=== PATIENT | female | born 1980 | race Caucasian/White ===

== ENCOUNTER 2025-04-28 10:44 | Emergency (ER) | payer OTHER, SELFPAY ==
--- OUTSIDE RECORDS SUMMARY | 2024-07-05 05:40 | XMS_ITS ---
Author Organization [employer] [facility] Address [address] [place] [address] Care Team Providers Care Merchandise Collector Name Role Phone Smitha SHAH, Jaciel Primary Care Provider Rianna Amaral Unavailable [phone] REASON FOR VISIT ULTRA - CK IUD PLACEMENT FIBROIDS Encounters Encounter Location Date Provider Diagnosis [facility] [address] [place] [address] 07/05/2024 Rianna Do Plan Of Treatment Next Appt Details Provider Name:Rianna mosley, 05/16/2025 02:00:00 PM, [address], [address], [place], [address], Progress Notes * JOSSELINE LOPEZDOB:[birth year] (44 yo F)Acc No.[id number]:07/05/2024 PROGRESS NOTES Patient: Yaritza PRASAD JOSSELINE Appointment Provider: Thom Do M.D. :1980 A ge:43 Y S ex:Female Date:07/05/2024 Address:[address] [place], [place] [id number] Pcp:Jaicel Bone MD Subjective: * Chief Complaints: * 1 . ULTRA - CK IUD PLACEMENT FIBROIDS. * Medical History: Objective: * Vitals: Assessment: Plan: * Treatment: * Images: Billing Information: * Visit Code: * Procedure Codes: * Electronic signature of Chandu Do MD on 04/28/2025 at 02:49 PM EST Sign off status: Pending * Appointment Provider: Thom Do M.D. Date: 0 07/05/2024 Generated for Jeane reynolds/Evelia/Orlin on: 1 06/29/2024 02:49 PM EST
--- OUTSIDE RECORDS SUMMARY | 2024-07-16 05:40 | XMS_ITS ---
Author Organization [facility] Address [address] [place] [address] Care Team Providers Care Retort Fireman Name Role Phone Smitha SHAH, Jaciel Primary Care Provider Rianna Amaral Unavailable [phone] REASON FOR VISIT LEEP Encounters Encounter Location Date Provider Diagnosis [facility] [address] [place] [address] 07/16/2024 Rianna Do Plan Of Treatment Next Appt Details Provider Name:Rianna mosley, 05/16/2025 02:00:00 PM, [address], [address], [place], [address], Progress Notes * JOSSELINE LOPEZDOB:[birth year] (44 yo F)Acc No.[id number]:07/16/2024 Progress Note Patient: Yaritza PRASAD JOSSELINE Appointment Provider: Thom Do M.D. :1980 A ge:43 Y S ex:Female Date:07/16/2024 Address:[address] [place], [place] [id number] Pcp:Jaciel Bone MD Subjective: * Chief Complaints: * 1 . LEEP. * Medical History: Objective: * Vitals: Assessment: Plan: * Treatment: * Images: Billing Information: * Visit Code: * Procedure Codes: * Electronic signature of Chandu Do MD on 04/28/2025 at 02:49 PM EST Sign off status: Pending * Appointment Provider: Thom Do M.D. Date: 0 07/16/2024 Generated for Jeane reynolds/Evelia/Orlin on: 1 06/29/2024 02:49 PM EST
--- OUTSIDE RECORDS SUMMARY | 2024-07-19 08:40 | XMS_ITS ---
Author Organization [facility] [employer] [facility] Address [address] [place] [address] Care Team Providers Care Hvac R Instructor Name Role Phone Smitha SHAH, Jaciel Primary Care Provider Rianna Amaral Unavailable [phone] REASON FOR VISIT LEEP FOLLOW UP/MIRENA INSERTION Encounters Encounter Location Date Provider Diagnosis [facility] [employer] [address] [place] [address] 07/19/2024 Rianna Do Plan Of Treatment Next Appt Details Provider Name:Rianna mosley, 05/16/2025 02:00:00 PM, [address], [address], [place], [address], Progress Notes * JOSSELINE LOPEZDOB:[birth year] (44 yo F)Acc No.[id number]:07/19/2024 PROGRESS NOTES Patient: Yaritza PRASAD JOSSELINE Appointment Provider: Thom Do M.D. :1980 A ge:43 Y S ex:Female Date:07/19/2024 Address:[address] [place], [place] [phone] Pcp:Jaciel Bone MD Subjective: * Chief Complaints: * 1 . LEEP FOLLOW UP/MIRENA INSERTION. * Medical History: Objective: * Vitals: Assessment: Plan: * Treatment: * Images: Billing Information: * Visit Code: * Procedure Codes: * Electronic signature of Chandu Do MD on 04/28/2025 at 02:49 PM EST Sign off status: Pending * Appointment Provider: Thom Do M.D. Date: 0 07/19/2024 Generated for Jeane reynolds/Evelia/Orlin on: 1 06/29/2024 02:49 PM EST
--- OUTSIDE RECORDS SUMMARY | 2024-07-19 09:00 | XMS_ITS ---
Author Organization [facility] Address [address] [place] [address] Care Team Providers Care Logistics Associate Name Role Phone Smitha SHAH, Jaciel Primary Care Provider Rianna Amaral Unavailable [phone] REASON FOR VISIT IUD WITH US GUIDANCE Encounters Encounter Location Date Provider Diagnosis [facility] [address] [place] [address] 07/19/2024 Rianna Do Plan Of Treatment Next Appt Details Provider Name:Rianna mosley, 05/16/2025 02:00:00 PM, [address] [address] [facility], [address], [place], [address], Progress Notes * JOSSELINE LOPEZDOB:[birth year] (44 yo F)Acc No.[id number]:07/19/2024 PROGRESS NOTES Patient: MEKHI MCMAHONLI Appointment Provider: Thom Do M.D. :1980 A ge:43 Y S ex:Female Date:07/19/2024 Address:[address] [place], [place] [phone] Pcp:Jaciel Bone MD Subjective: * Chief Complaints: * 1 . IUD WITH US GUIDANCE. * Medical History: Objective: * Vitals: Assessment: Plan: * Treatment: * Images: Billing Information: * Visit Code: * Procedure Codes: * Electronic signature of Chandu Do MD on 04/28/2025 at 02:49 PM EST Sign off status: Pending * Appointment Provider: Thom Do M.D. Date: 0 07/19/2024 Generated for Jeane reynolds/Evelia/Orlin on: 1 06/29/2024 02:49 PM EST
--- OUTSIDE RECORDS SUMMARY | 2024-08-09 03:30 | XMS_ITS ---
Author Organization [employer] Address [address] [place] [address] Care Team Providers Care Medicinal Plant Picker Name Role Phone Smitha SHAH, Jaciel Primary Care Provider Rianna Amaral Unavailable [phone] REASON FOR VISIT ULTRA- CK IUD PLACEMENT Encounters Encounter Location Date Provider Diagnosis [facility] [employer] [address] [place] [address] 08/09/2024 Rianna Do Plan Of Treatment Next Appt Details Provider Name:Rianna mosley, 05/16/2025 02:00:00 PM, [address], [address], [place], [address], Progress Notes * JOSSELINE LOPEZDOB:[birth year] (44 yo F)Acc No.[id number]:08/09/2024 PROGRESS NOTES Patient: Yaritza PRASAD JOSSELINE Appointment Provider: Thom Do M.D. :1980 A ge:43 Y S ex:Female Date:08/09/2024 Address:[address] [place], [place] [phone] Pcp:Jaciel Bone MD Subjective: * Chief Complaints: * 1 . ULTRA- CK IUD PLACEMENT. * Medical History: Objective: * Vitals: Assessment: Plan: * Treatment: * Images: Billing Information: * Visit Code: * Procedure Codes: * Electronic signature of Chandu Do MD on 04/28/2025 at 02:49 PM EST Sign off status: Pending * Appointment Provider: Thom Do M.D. Date: 0 08/09/2024 Generated for Jeane reynolds/Evelia/Orlin on: 1 06/29/2024 02:49 PM EST
--- NOTE | 2025-04-28 | ECG_ITS ---
Test Reason : CP Blood Pressure : */* mmHG Vent. Rate : 107 BPM Atrial Rate : 107 BPM P-R Int : 142 ms QRS Dur : 80 ms QT Int : 340 ms P-R-T Axes : 36 -7 17 degrees QTcB Int : 453 ms Sinus tachycardia Possible Left atrial enlargement Borderline ECG No previous ECGs available Referred By: Generic ED Physician Electronically Signed By: MARCELO MARTÍNEZ MD
--- NOTE | ~2025-04-28 | XR_ITS ---
EXAMINATION: XR CHEST 2 VIEWS HISTORY: CHest pain COMPARISON: There are no prior studies available for comparison. FINDINGS: PA and lateral views of the chest are submitted. The lungs are expanded and clear. There is no pleural effusion, pneumothorax, or pulmonary vascular congestion. The heart is normal in size. There is mild degenerative disc disease of the spine. XR/XR chest 2V IMPRESSION: Clear lungs. Electronically signed by: Mikhail Haro MD 04/28/2025 11:33 AM COREY
[2025-04-28 11:08] VITALS: BP 171/99; PULSE 112; RESP 18; TEMP 36.6; O2SAT 97; BMI 34.5
--- NOTE | 2025-04-28 11:14 | ED.CHESTPAIN ---
HPI - Chest Pain General Chief Complaint: Chest Pain Stated Complaint: Chest Pain, Coughing, Shortness of Breath Time Seen by Provider: 04/28/25 11:23 Source: patient Mode of arrival: ambulatory Limitations: no limitations History of Present Illness ED Provider: BRADY YUN PA-C HPI narrative: 44 year old female presents to the ED today for evaluation of cough x1 month. Reports URI infection 1 month ago - she was seen at for symptoms, prescribed amox, prednisone and tessalon perles with improvement. Reports lingering dry cough since. She states that yesterday she began to have deep chest pain under her left breast, worse with movement/ breathing/ coughing/ palpation of the area. She has not trialed anything at home for the pain. She was seen at today with normal CXR - advised to come to the ED to r/o PE v pericarditis. Reports subjective fever/chills last night which have resolved. 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 Denies sore throat, sputum production, hemoptysis, wheezing, SOB, LE pain/swelling. Denies OCP use, recent travel/long car rides, hormone replacement therapy, tobacco use. No personal cardiac hx. Related Data Previous Rx's ?Medication ?Instructions ?Recorded doxycycline hyclate 100 mg tablet 100 mg PO BID 7 days #14 tabs 04/28/25 guaifenesin 200 mg/5 mL oral liquid 200 mg (5 mL) PO Q4H PRN cough 04/28/25 #118 mL prednisone 20 mg tablet 40 mg (2 x 20 mg) PO DAILY 5 days 04/28/25 #10 tabs Allergies Allergy/AdvReac Type Severity Reaction Status Date / Time azithromycin Allergy Unknown Verified 04/28/25 11:10 Review of Systems Review of Systems: Yes all other systems are reviewed and are negative PMFSH Past Medical History Attestation statement: The following information was validated with the patient. Source: old records reviewed and nursing notes reviewed Social History Social History Advance Directives: No Advance Directives Information Provided: No Do you have a plan to hurt others: No Plan Physical Exam Vital Signs: Vital Signs: Last Vital Signs Temp 97.7 F 04/28/25 14:57 Pulse 73 04/28/25 14:57 Resp 18 04/28/25 14:57 BP 140/90 H 04/28/25 14:57 Pulse Ox 97 04/28/25 14:57 O2 Del Method Room Air 04/28/25 14:57 BMI result Body Mass Index 34.5 hyperrensive, mildly tachycardic, not hypoxic General: Well appearing, in no acute distress. Skin: Warm, dry, intact. No rashes or lesions. Head: Normocephalic, atraumatic. EENT: Hearing is intact b/l. Conjunctiva clear. PERRLA. EOM intact. Moist mucous membranes.? Neck: Supple without LAD Cardiac: Chest wall symmetric. RRR. no JVD. Lungs: Normal respiratory effort without accessory muscle use. CTA bilaterally. No rales, rhonchi, or wheezes.? Abdomen: Soft, non-tender, non-distended. No rebound tenderness or guarding. Positive BS x4. Back: No midline spinous or paraspinal tenderness. No step off deformity. Ext: no calf tenderness b/l. no pitting edema. Neuro: AOx3. Normal speech. Ambulating with steady gait. Course Course Course Narrative: RME: 44-year-old female history of Von Willebrand's disease sent from urgent care to rule out PE. Patient is 1 month of coughing and then for the past few days has had pleurisy with left-sided chest pain which is new. Patient tachycardic. Labs EKG chest x-ray ordered Reevaluation(s) Reevaluation #1: CBC without leukocytosis or left shift. no anemia, h&h stable. chemistry without acute electrolyte abnormality requiring intervention. No ROSAMARIA. mild transaminitis. Urine showing moderate blood, trace leukocyte esterase, 6-10 squamous epithelial cells and 1+ urine bacteria. She is asymptomatic, likely contamination. Will await urine culture for treatment of UTI. negative covid, flu, rsv. cxr without evidence of pneumonia, no pleaural effusion or cardiomegaly. ekg showing sinus tachycardia, rate of 107 bpm, without evidence of acute ischemic changes. troponin undetectable. > patient has sustained 95% on room air during ambulatory O2 trial. No longer tachycardic or hypertensive. Vitals are WNL. > Medicated with Toradol for pain with good effect At this time, I have suspicion for pleurisy v bronchitis v rib sprain/strain. Advised NSAIDs. Will send prednisone, azithromycin and guaifenesin to pharmacy. Patient has remained stable throughout ED visit today. Discussed worrisome signs and symptoms and when to return to the ED. All questions answered at this time. Patient is agreeable with disposition and stable for discharge. Medications Administered Discontinued Medications Generic Name Dose Route Start Last Admin Trade Name Fredoq PRN Reason Stop Dose Admin Ketorolac Tromethamine 30 mg 04/28/25 13:28 04/28/25 13:33 Ketorolac Tromethamine 30 Mg/Ml Vial IM 04/28/25 13:29 30 mg ONCE ONE Administration Medical Decision Making Medical Decision Making [facility] Narrative: 44 year old female presents to the ED today for evaluation of cough x1 month with left sided chest pain that began yesterday. patient is hypertensive and tachycardic, vitals are otherwise reassuring. exax benign. History without high risk features (not substernal, no exertional component, not relieved with rest).? Minimal CAD risk factors (including age). Exam without evidence of volume overload. EKG without signs of active ischemia. HEART score: 0. Given the timing of pain to ED presentation, plan to send single troponin to evaluate for NSTEMI. Differential diagnosis also includes anemia, electrolyte abnormality, costochondritis, msk pain, pneumonia, pleurisy, rib sprain/strain, myocarditis, pericarditis, acute PE PERC 1 - tachycardia) Presentation not consistent pneumothorax, thoracic aortic dissection, cardiac effusion or tamponade. Plan: labs, troponin, EKG, CXR, viral swabs, pain control, reassessment Differential Diagnosis Differential Diagnoses: The differential diagnosis associated with the presentation includes as above Admission/Observation Not indicated Lab Data [facility] Lab Attestation statement: I reviewed the patient's lab results. as above 04/28/25 11:42 04/28/25 11:42 Labs: Lab Results 04/28/25 04/28/25 Range/Units 10:58 11:42 WBC 5.1 (4.8-10.8) X10*3/uL RBC 4.34 (4.20-5.50) X10*6/uL Hgb 12.4 (12.0-16.0) g/dl Hct 37.3 (37.0-47.0) % MCV 85.9 (80.0-98.0) fL MCH 28.6 (27.0-33.0) pg MCHC 33.2 (31.0-35.0) g/dl RDW 12.8 (11.0-16.0) % Plt Count 192 (160-400) X10*3/uL MPV 9.7 (9.4-12.3) fL Immature Gran % (Auto) 0.2 (0.0-0.4) % Neut % (Auto) 68.6 (45-73) % Lymph % (Auto) 19.7 L (20-40) % Bandera % (Auto) 9.7 (2-11) % Eos % (Auto) 1.0 (0-4) % Baso % (Auto) 0.8 (0-2) % Lymph # (Auto) 1.0 L (1.2-4.9) X10*3/uL Bandera # (Auto) 0.5 (0.1-1.2) X10*3/uL Eos # (Auto) 0.1 (0.0-0.4) X10*3/uL Baso # (Auto) 0.0 (0.0-0.2) X10*3/uL Abs Immat Gran (auto) 0.01 (0.00-0.03) X10*3/uL Absolute Neuts (auto) 3.5 (2.0-8.3) x10*3/uL Absolute Nucleated RBC 0.000 (0.0-0.012) X10*3/uL Nucleated RBC % (auto) 0.0 (0.0-0.2) /100WBC PT 12.2 (11.2-13.5) SEC INR 1.0 (0.9-1.1) APTT 28.6 (26.7-34.1) SEC D-Dimer High Sensitivty 219 NG/ML Sodium 139 (135-145) mmol/L Potassium 3.5 (3.3-5.1) mmol/L Chloride 108 (96-108) mmol/L Carbon Dioxide 24 (22-29) mmol/L Anion Gap 11 L (12-20) BUN 15 (9-16) mg/dL Creatinine 0.67 (0.5-1.4) mg/dL Estim Creat Clear Calc 125.8 Estimated GFR > 60 Random Glucose 98 (60-115) mg/dL Calcium 8.7 (8.4-10.2) mg/dL Total Bilirubin 0.3 (0.0-1.0) mg/dL AST 45 H (5-31) U/L ALT 54 H (0-31) U/L Alkaline Phosphatase 126 H (39-117) U/L Troponin I High Sens < 2.7 (<3.5-17.0) ng/L NT-Pro-B Natriuret Pep 45.7 (<300) pg/mL Total Protein 6.8 (6.5-8.0) g/dL Albumin 4.6 (3.5-5.0) g/dL Urine Color Yellow Urine Appearance Cloudy Urine pH 5.5 (5.0-9.0) Ur Specific Leonore 1.010 (1.005-1.025) Urine Protein Negative (Neg-Trace) mg/dL Urine Glucose (UA) Negative (Negative) mg/dL Urine Ketones Negative (Negative) mg/dL Urine Blood Moderate (2+) H (Negative) Urine Nitrite Negative (Negative) Ur Leukocyte Esterase Trace H (Negative) Urine RBC 0-2 (0-2) /HPF Urine WBC 0-5 (0-5) /HPF Ur Squamous Epith Cells 6-10 (0-2) /HPF Urine Bacteria 1+ (None Seen) Hyaline Casts 0-2 (0-2) /LPF Influenza Type A (PCR) NEGATIVE (Negative) Influenza Type B (PCR) NEGATIVE (Negative) RSV RNA Qual (PCR) NEGATIVE (Negative) SARS-CoV-2 RNA (RT-PCR) NEGATIVE (Negative) Independent Interpretation I performed an independent interpretation of an: EKG and Plain X-Ray Interpretation: EKG showing sinus tachycardia, no acute ischemic changes or ST elevations Chest x-ray without infiltrate or consolidation Radiology Impression Discussion of test interpretation with radiology: I have reviewed the radiologist's reading. Radiologist Impression: Procedure(s): XR chest 2V Accession Number(s): [id number] cc: Sandoval Solomon; Jaciel Bone MD~ Reason for Exam: CHest pain EXAMINATION: XR CHEST 2 VIEWS HISTORY: CHest pain COMPARISON: There are no prior studies available for comparison. FINDINGS: PA and lateral views of the chest are submitted. The lungs are expanded and clear. There is no pleural effusion, pneumothorax, or pulmonary vascular congestion. The heart is normal in size. There is mild degenerative disc disease of the spine. XR/XR chest 2V IMPRESSION: Clear lungs. Electronically signed by: Mikhail Haro MD 04/28/2025 11:33 AM EST Prescription Management I considered prescription management with: Pain Medication, Antibiotic ( azithromycin) and Other ( prednisone, guaifenesin) Social Determinants Patient?s care significantly limited by Social Determinants of Health including: Other Social Determinant of Health Critical Care Time Critical Care Time Critical Care Time: No Discharge Plan Discharge Clinical Impression: Atypical chest pain, Cough Patient Disposition: Home, Self-Care Instructions: Noncardiac Chest Pain (ED) Additional Instructions: You were evaluated in the ED today for cough and chest pain. Your blood work is reassuring. Your cardiac enzyme is normal. Your EKG shows a slightly elevated heart rate, otherwise normal. Your chest x-ray does not demonstrate pneumonia. You tested negative for COVID, flu, RSV. Your bedside cardiac ultrasound is reassuring. Your d-dimer is within normal limits. As discussed, it is unclear what exactly is causing your symptoms. It may be pleurisy v rib strain v bronchitis. I recommend NSAIDs such as Motrin at home for pain / discomfort. This also acts as an anti-inflammatory. I am sending a 5 day course of prednisone. Take this as prescribed. I am sending doxycycline, an antibiotic, to your pharmacy. Take this as prescribed over the next 5 days. Discontinue Tessalon Perle use. Guaifenesin has been sent to your pharmacy for you to take as needed for cough. Please follow up with your primary care provider. Return with any new or worsening symptoms. In the case of an emergency call 911. Prescriptions: New doxycycline hyclate 100 mg tablet 100 mg PO BID 7 Days Qty: 14 0RF prednisone 20 mg tablet 40 mg PO DAILY 5 Days Qty: 10 0RF guaifenesin 200 mg/5 mL liquid 200 mg PO Q4H PRN (Reason: cough) Qty: 118 0RF Referrals: Jaciel Bone MD [Primary Care Provider, Internal Medicine] Stand Alone Forms: Work/School Release Interventions: ED Discharge Assessment Last Done: 04/28/25 14:57 Discharge Date/Time: 04/28/25 14:57 Print Language: Belarusian
[2025-04-28 11:41] LABS: Resp Syncy Virus RNA Qual PCR NEGATIVE (Negative); SARS COV2 PCR INHOUSE NEGATIVE (Negative)
--- NOTE | 2025-04-28 11:53 | PC.NURSE ---
Labs drawn and sent for analysis, results pending.
[2025-04-28 11:55] LABS: MANUAL DIFF FLAG NO
[2025-04-28 11:58] LABS: Hematocrit 37.3 % (37.0-47.0); Hemoglobin 12.4 g/dl (12.0-16.0); Imm Gran Abs Auto 0.01 X10*3/uL (0.00-0.03); Imm Gran Pct Auto 0.2 % (0.0-0.4); Lymphocytes Absolute Auto 1.0 X10*3/uL (1.2-4.9); Mean Corpuscular HGB Conc 33.2 g/dl (31.0-35.0); Mean Corpuscular Hemoglobin 28.6 pg (27.0-33.0); Mean Corpuscular Volume 85.9 fL (80.0-98.0); NRBC Abs Auto 0.000 X10*3/uL (0.0-0.012); NRBC Pct Auto 0.0 /100WBC (0.0-0.2); Platelet Count 192 X10*3/uL (160-400); Red Blood Count 4.34 X10*6/uL (4.20-5.50); White Blood Count 5.1 X10*3/uL (4.8-10.8)
[2025-04-28 12:00] VITALS: BP 142/94; PULSE 72; RESP 18; O2SAT 98
[2025-04-28 12:00] LABS: Appearance Urine Cloudy; Glucose Urine UA Negative (Negative); PH 5.5 (5.0-9.0); Specific Gravity - Urine 1.010 (1.005-1.025); UMIC TRIGGER UACC YES
[2025-04-28 12:02] LABS: INTERNATIONAL NORM RATIO 1.0 (0.9-1.1); Prothrombin Time 12.2 SEC (11.2-13.5)
[2025-04-28 12:04] LABS: Partial Thromboplastin Time 28.6 SEC (26.7-34.1)
[2025-04-28 12:11] LABS: Alanine Aminotransferase 54 U/L (0-31); Albumin Level 4.6 g/dL (3.5-5.0); Alkaline Phosphatase 126 U/L (39-117); Anion Gap 11 (12-20); Aspartate Amino Transferase 45 U/L (5-31); Blood Urea Nitrogen 15 mg/dL (9-16); Calcium 8.7 mg/dL (8.4-10.2); Carbon Dioxide 24 mmol/L (22-29); Chloride 108 mmol/L (96-108); Creatinine Clr Calc Pharmacy 125.8; Estimated Glomerular Filt Rate > 60; Potassium 3.5 mmol/L (3.3-5.1); Sodium 139 mmol/L (135-145); Total Protein 6.8 g/dL (6.5-8.0)
[2025-04-28 12:12] LABS: D Dimer High Sensitivity 219 NG/ML
[2025-04-28 14:00] VITALS: BP 140/90
[2025-04-28 14:12] LABS: NT Pro B Type Natriuretic Pept 45.7 pg/mL (<300)
[2025-04-28 14:19] LABS: Troponin-I High Sensitivity < 2.7 ng/L (<3.5-17.0)
--- OUTSIDE RECORDS SUMMARY | 2025-04-28 14:49 | XMS_ITS | Patient Health Record ---
Author Organization [facility] Address [address] [place] [address] Care Team Providers Care Computer Consultant Name Role Phone Jaciel Bone MD Primary Care Provider Rianna Amaral Unavailable [phone] Allergies Allergen (clinical drug ingredient) Drug/Non Drug Allergy documented on EMR Reaction Allergy Type Onset Date Status azithromycin Azithromycin Skin Rash Drug Allergy A ctive Results Component Value Reference Range Notes Urinalysis Reviewed date:05/15/2024 03:03:50 PM Interpretation: Performing Lab: Notes/Report: PH 5.0 PROTEIN Trace WBC Small BLOOD Moderate PDF Report Reviewed date:05/24/2024 02:13:04 PM Interpretation: Performing Lab:[facility], [address] [place] [address], Phone - [phone], Director - [facility] Notes/Report: Clinical Information:Vaginal/Cervical, LMP: Non e with IUD Source.............Cervix;Vagina Dates / Results....05/15/19 NIL, Neg HPV Other..............IUD No. of containers..01 ThinPrep Vial [id number] IGP No Culture 30 Plus Reviewed date:05/28/2024 03:41:22 PM Interpretation: Performing Lab:[facility], [address] [place] [address], Phone - [phone], Director - [facility] Notes/Report: Clinical Information:Vaginal/Cervical, LMP: Non e with IUD Source.............Cervix;Vagina Dates / Results....05/15/19 NIL, Neg HPV Other..............IUD No. of containers..01 ThinPrep Vial DIAGNOSIS: EPITHELIAL CELL ABNORMALITY. ATYPICAL SQUAMOUS CELLS OF UNDETERMINED SIGNIFICANCE (ASC-US). PREDOMINANCE OF COCCOBACILLI CONSISTENT WITH SHIFT IN VAGINAL SORIN IS PRESENT. THIS SPECIMEN WAS RESCREENED PART OF OUR DATA ENTRY PROGRAM. Specimen adequacy: Satisfactory for evaluation. Endocervical and/or squamous metaplastic cells (endocervical component) are present. Clinician provided ICD10: Z01.419 Performed by: Dorene negro, Asset Management Coordinator (ASCP) QC reviewed by: Ron elizabeth, Asset Management Coordinator (ASCP) Electronically signed by: Margarette Dumont MD, [facility] . . Pathologist provided ICD10: R87.610, R87.5 Note: The Pap smear is a screening test designed to aid in the detection of premalignant and malignant conditions of the uterine cervix. It is not a diagnostic procedure and should not be used as the sole means of detecting cervical cancer. Both false-positive and false-negative reports do occur. . Test Methodology: This liquid based ThinPrep(R) pap test was screened with the use of an image guided system. HPV Aptima Positive Negative This nucleic acid amplification test detects fourteen high-risk HPV types (16,18,31,33,35,39,45,51,52, 56,58,59,66,68) without differentiation. HPV Genotype Reflex Criteria not met, HPV Genotype not performed. Urine Culture, Routine-[id number] Reviewed date:06/05/2024 08:20:00 AM Interpretation: Performing Lab:[facility], [address] [facility], Phone - [phone], Director - Benjamin Notes/Report: Clinical Information:SRC: Clinical Information:SRC: Urine Culture, Routine Final report Result 1 Mixed urogenital sorin 10,000-25,000 colony forming units per mL Urinalysis, Complete-[id number] Reviewed date:06/05/2024 08:20:16 AM Interpretation: Performing Lab:[facility], [address] [facility], Phone - [phone], Director - Benjamin Notes/Report: Clinical Information:SRC: Clinical Information:SRC: Specific [place] 1.022 1.005-1.030 pH 7.0 5.0-7.5 Urine-Color Yellow Yellow Appearance Clear Clear WBC Esterase Negative Negative Protein Negative Negative/Trace Glucose Negative Negative Ketones Negative Negative Occult Blood Trace Negative Bilirubin Negative Negative Urobilinogen,Semi-Qn 0.2 0.2-1.0 mg/dL Nitrite, Urine Negative Negative Microscopic Examination See below: Micr oscopic was indicated and was performed. WBC 0-5 0 - 5 /hpf RBC 0-2 0 - 2 /hpf Epithelial Cells (non renal) >10 0 - 10 /hpf Casts None seen None seen /lpf Bacteria Few None seen/Few Test, Urine Reviewed date:06/27/2024 09:51:56 AM Interpretation: Performing Lab: Notes/Report: Test, Urine Negative SURGICAL PATHOLOGY Reviewed date:07/06/2024 05:21:28 AM Interpretation: Performing Lab:Testing performed or reported by [facility], a Service of [facility], [address] [place] [address] Spencer Buitrago MD, Driving Instructor [facility]# [id number] Notes/Report: Patient Name: JOSSELINE LOPEZ Lab Patient : 1980 (Age: 43) Collection Date: 06/27/2024 Accession Date: 06/27/2024 Sign Out Date: 07/05/2024 Tissue Source: 1:LEEP STITCH AT 6' Final Diagnosis: Cervix, LEEP: - Low-grade squamous intraepithelial lesion (RULA 1), with focal extension to 12-3 o'clock stromal and endocervical margins. - Remaining margins negative. Microscopic Description: A p16 stain shows weak and strong block-like positivity in LSIL/RULA-1 with increased Ki-67 proliferation. The morphologic features are borderline between RULA-1 and RULA-2, but nuclear cytoplasmic ratios remain low towards the squamous mucosa surface. The lesion is interpreted as LSIL/RULA-1. Primary Pathologist:DANIEL MARRERO M.D. electronically signed out by: DANIEL MARRERO M.D. / [facility] Clinical History: 43-year-old female, RULA II on colpo Gross Description: Labeled cervical LEEP . Received in formalin is a 0.6 cm in length cone biopsy of cervix. The surgeon has placed a suture on 6:00. The en face measurements are 1.8 cm (3:00-9:00) and 1.4 cm (12:00-6:00). The os is slit shaped, patent and measures 0.6 cm in diameter. The ectocervical mucosa is rizvi and smooth. The endocervical mucosa is rizvi-red and granular. The stromal margin is marked with blue ink and the endocervical margin is marked with yellow ink. The cone is radially sectioned beginning at 12:00 and moving in a clockwise fashion, entirely submitted sequentially as follows: 1--12-3 o'clock, 2 pieces. 2--3-6 o'clock, 2 pieces. 3--6-9 o'clock, 2 pieces. 4--9-12 o'clock, 2 pieces. (KD)* As of July 15, 2023, the specimen processing and staining is performed at [facility], [address] [place] [address] (CLIA#[id number]). Its performance characteristics determined by [facility]. Kat Dumont M.D. Driving Instructor of Surgical Pathology, Susi Laboy M.D. Driving Instructor Cytopathology Phone #: [phone], On-Call Pathologist: [id number] Test, Urine Reviewed date:07/05/2024 04:41:08 PM Interpretation: Performing Lab: Notes/Report: Test, Urine Negative Test, Urine Reviewed date:07/24/2024 11:56:49 AM Interpretation: Performing Lab: Notes/Report: Test, Urine Negative Prothrombin Time (PT)-[id number] Reviewed date:07/25/2024 07:48:33 AM Interpretation: Performing Lab:[facility], [address] [place] [address], Phone - [phone], [facility] Notes/Report: INR 0.9 0.9-1.1 Prothrombin Time 10.0 9.2-11.4 SEC PTT, Activated-[id number] Reviewed date:07/25/2024 07:48:18 AM Interpretation: Performing Lab:[facility], [address] [place] [address], Phone - [phone], Director - [facility] Notes/Report: aPTT 24.6 23.4-33.1 SEC For patients needing higher than usual dose of heparin to achieve therapeutic range use UFH anti Xa levels for monitoring. CBC, Platelet, No Differenti al-[id number] Reviewed date:07/25/2024 07:48:52 AM Interpretation: Performing Lab:[facility], [address] [place] [address], Phone - [phone], Director - [facility] Notes/Report: WBC 9.7 4.0-11.0 K/MM3 RBC 4.23 4.20-5.40 M/MM3 Hemoglobin 12.4 11.7-15.5 GM/DL Hematocrit 38.4 35.7-45.8 % MCV 90.8 80.0-100.0 FL MCH 29.3 27.0-34.0 PG MCHC 32.3 33.0-37.0 g/dL RDW 41.1 <47.0 FL Platelets 269 150-460 K/MM3 NRBC 0.0 MPV 10.2 FL 9.4-12.4 N ABS. NRBC 0.0 K/MM3 N PDF Report Reviewed date:07/25/2024 07:48:04 AM Interpretation: Performing Lab:[facility], [address] [place] [address], Phone - [phone], Director - [facility] Notes/Report: [id number] IGP No Culture 30 Plus Reviewed date:01/14/2025 06:58:27 PM Interpretation: Performing Lab:[facility], [address], [address], [place], Phone - [phone], Director - [facility] Notes/Report: Clinical Information:Vaginal/Cervical, LMP: Non e with IUD, Hx of ASCUS, P os HPV, CI Source.............Cervix;Vagina Dates / Results....05/15/24 ASCUS, + HPV Other..............IUD No. of containers..01 ThinPrep Vial DIAGNOSIS: NEGATIVE FOR INTRAEPITHELIAL LESION OR MALIGNANCY. PREDOMINANCE OF COCCOBACILLI CONSISTENT WITH SHIFT IN VAGINAL SORIN IS PRESENT. THIS SPECIMEN WAS RESCREENED PART OF OUR DATA ENTRY PROGRAM. Specimen adequacy: Satisfactory for evaluation. Endocervical and/or squamous metaplastic cells (endocervical component) are present. Clinician provided ICD10: R87.810 R87.610 Performed by: Gary sanches, Binding Nicker (ASCP) QC reviewed by: Dary Medina, Binding Nicker (ASCP) . . Note: The Pap smear is a screening test designed to aid in the detection of premalignant and malignant conditions of the uterine cervix. It is not a diagnostic procedure and should not be used as the sole means of detecting cervical cancer. Both false-positive and false-negative reports do occur. . Test Methodology: This liquid based ThinPrep(R) pap test was screened with the use of an image guided system. HPV Aptima Negative Negative This nucleic acid amplification test detects fourteen high-risk HPV types (16,18,31,33,35,39,45,51,52, 56,58,59,66,68) without differentiation. HPV Genotype Reflex Criteria not met, HPV Genotype not performed. PDF Report Reviewed date:01/14/2025 06:58:01 PM Interpretation: Performing Lab:[facility], [address], [address], [place], Phone - [phone], Director - Susan Notes/Report: Clinical Information:Vaginal/Cervical, LMP: Non e with IUD, Hx of ASCUS, P os HPV, CI Source.............Cervix;Vagina Dates / Results....05/15/24 ASCUS, + HPV Other..............IUD No. of containers..01 ThinPrep Vial PDF Report Reviewed date:06/05/2024 07:58:19 AM Interpretation: Performing Lab:[facility], [address] [facility], [place], Phone - [phone], Director - Benjamin Notes/Report: Clinical Information:SRC:UC Test, Urine Reviewed date:06/03/2024 10:38:45 AM Interpretation: Performing Lab: Notes/Report: Test, Urine Negative SURGICAL PATHOLOGY Reviewed date:06/11/2024 03:34:31 PM Interpretation: Performing Lab:Testing performed or reported by [facility], a Service of [facility], [address] [place] [address] Spencer Buitrago MD, Driving Instructor [facility]# [id number] Notes/Report: Patient Name: JOSSELINE LOPEZ Lab Patient : 1980 (Age: 43) Collection Date: 06/03/2024 Accession Date: 06/03/2024 Sign Out Date: 06/09/2024 Tissue Source: 1:ECC 2:5 CERVICAL BX 3:9 CERVICAL BX 4:12 CERVICAL BX Final Diagnosis: 1. Endocervix, curettage: - Extremely scant endocervical glandular and squamous mucosa, negative for squamous intraepithelial lesion. 2. Cervix, 5 o'clock, biopsy: - Low grade squamous intraepithelial lesion (RULA 1). Note: Multiple additional tissue levels have been examined. 3. Cervix, 9 o'clock, biopsy: - Squamous intraepithelial lesion compatible with high grade (RULA 2). Immunohistochemical studies are performed for biomarker [id number] , the results are as follows: A. [id number] : Focal block-like immunoreactivity present in squamous epithelial cells. Interpretation: The immunohistochemical result supports the interpretation of high grade squamous intraepithelial lesion. - Chronic cervicitis. 4. Cervix, 12 o'clock, biopsy: - Chronic cervicitis with reactive squamous epithelial change. Comment: As of July 15, 2023, the technical component is performed by [facility] [address], [place] [address]. This test was developed, and its performance characteristics determined by [facility]. It has not been cleared or approved by the U.S. Food and Drug Administration. The FDA has determined that such clearance or approval is not necessary. This test is used for clinical purposes. It should not be regarded as investigational or for research. The positive and negative controls have been reviewed and are satisfactory. Primary Pathologist:Ree Guan M.D. electronically signed out by: Ree Guan M.D. / [facility] Clinical History: Cervical high risk human papilloma virus DNA test positive Atypical squamous cells of undetermined significance on cytologic smear of cervix Gross Description: Part 1. Labeled endocervical curettings . Received in formalin is a 0.8 x 0.6 x 0.1 cm aggregate of translucent mucus with red, rizvi tissue. The specimen is entirely submitted. 1-multiple pieces, x 2. (EG)* Part 2. Labeled 5: 00 . Received in formalin is a 0.4 x 0.3 x 0.2 cm soft white, red tissue. The specimen is entirely submitted. 1-1 piece, x 2, EOE. (EG)* Part 3. Labeled 9: 00 . Received in formalin is a 0.4 x 0.3 x 0.2 cm soft white, red tissue. The specimen is entirely submitted. 1-1 piece, x 2, EOE. (EG)* Part 4. Labeled 12: 00 . Received in formalin is a 0.4 x 0.3 x 0.2 cm soft white, red tissue. The specimen is entirely submitted. 1-1 piece, x 2, EOE. (EG)* As of July 15, 2023, the specimen processing and staining is performed at [facility], [address] [place] [address] (CLIA#[id number]). Its performance characteristics determined by [facility]. Kat Dumont M.D. Driving Instructor of Surgical Pathology, Susi Laboy M.D. Driving Instructor Cytopathology Phone #: [phone], On-Call Pathologist: [id number] Reason For Referral No Information Medications Medication SIG (Take, Route, Frequency, Duration) Notes Start Date End Date Status Mirena (52 MG) 20 MCG/DAY as directed Intrauterine Inserted 07/05/24 Active ZyrTEC Allergy 10 MG 1 tablet Orally Onc e a day Active Ibuprofen 800 MG 1 tablet Orally EVERY 6 HOURS, PRN; Duration: 30 days 07/24/2024 Active Omeprazole 20 MG 1 capsule 1/2 to 1 hour before morning meal Orally Once a day; Duration: 30 days 05/15/2024 Active LORazepam 0.5 MG Oral; Duration: 30 Days Active Tranexamic Acid 650 MG TAKE 2 TABLETS BY MOUTH THREE TIMES DAILY FOR 5 DAYS DURING MENSES Orally; Duration: 5 days 07/02/2024 Active Norethindrone Acetate 5 MG 1 tablet Orally 1 TAB Q 6HRS-D1, Q8 HRS-D2, 2X/DAY FOR 30 DAYS; Duration: 60 days 07/17/2024 Active Social History Tobacco Use: Social History Observation Description Date Details (start date - stop date) Never Smoker NA - NA Sexual History Question Answer Notes Had sex in the past 12 months (vaginal, oral, or anal)? Yes with Men only Prevention strategies discussed: Other Have you ever had a Sexually transmitted disease ? No AUDIT-C (Standard) Question Answer Notes Did you have a drink contain ing alcohol in the past year? Yes How often did you have six o r more drinks on one occasion in the past year? Never (0 point) How many drinks did you have on a typical day when you were drinking in the past year? 1 or 2 drinks (0 point) How often did you have a dri nk containing alcohol in the past year? 2 to 4 times a month (2 points) Points 2 Interpretation Negative Tobacco Control (Standard) Question Answer Notes Tobacco use: Nonsmoker Problems Problem Type SNOMED Code ICD Code Onset Dates Problem Status W/U Status Risk Notes Problem Excessive and frequent menstruation (567059270) Excessive and frequent menstruation with regular cycle (N92.0) Active confirmed Problem Human papilloma virus deoxyribonucleic acid test positive, high risk on vaginal specimen (908474693179084) Cervical high risk human papillomavirus (HPV) DNA test positive (R87.810) Active confirmed Problem Moderate cervical dysplasia (759535498) Moderate cervical dysplasia (N87.1) Active confirmed Problem Gastro-esophageal reflux disease without esophagitis (993457759) Gastro-esophageal reflux disease without esophagitis (K21.9) Active confirmed Problem Abnormal vaginal bleeding (039360590) Other specified abnormal uterine and vaginal bleeding (N93.8) Active confirmed Problem History of dysplasia of cervix (943991209) Personal history of cervical dysplasia (Z87.410) Active confirmed Problem von Willebrand disorder (disorder) (765381810) Von Willebrand disease, unspecified (D68.00) Active confirmed Vital Signs Temperature 97.9 degrees Fahrenheit 01/10/2025 Blood pressure diastolic 84 mm Hg 01/10/2025 Height 66 in 01/10/2025 Blood pressure systolic 120 mm Hg 01/10/2025 Weight 220 lbs 01/10/2025 BMI 35.51 kg/m2 01/10/2025 Encounters Encounter Location Date Provider Diagnosis [address] [place] [place] [address] 08/09/2024 Rianna Do [facility] [address] [place] [address] 05/15/2024 Rianna Do Encounter for gynecological examination (general) (routine) without abnormal findings Z01.419 ; Encounter for screening mammogram for malignant neoplasm of breast Z12.31 ; Other microscopic hematuria R31.29 and Encounter for routine checking of intrauterine contraceptive device Z30.[address] [address] 06/03/2024 Rianna Do Cervical high risk human papillomavirus (HPV) DNA test positive R87.810 and Atypical squamous cells of undetermined significance on cytologic smear of cervix (ASC-US) R87.[address] [address] 06/27/2024 Rianna Do Moderate cervical dysplasia N87.1 ; Encounter for removal of intrauterine contraceptive device Z30.432 and Excessive and frequent menstruation with regular cycle N92.[address] [address] 07/05/2024 Rianna Do Encounter for insertion of intrauterine contraceptive device Z30.430 ; Excessive and frequent menstruation with regular cycle N92.0 ; Postprocedural hemorrhage of a genitourinary system organ or structure following a genitourinary system procedure N99.820 and Personal history of cervical dysplasia Z87.[address] [address] 07/24/2024 Rianna oD Other specified abnormal uterine and vaginal bleeding N93.8 ; Pelvic Pain R10.2 ; Personal history of cervical dysplasia Z87.410 ; Encounter for routine checking of intrauterine contraceptive device Z30.431 and Von Willebrand disease, unspecified D68.[address] [address] 08/09/2024 Rianna Do Excessive and freque nt menstruation with regular cycle N92.[address] [address] 01/10/2025 Rianna Do Moderate cervical dysplasia N87.1 and Encounter for routine checking of intrauterine contraceptive device Z30.[address] [address] 05/15/2024 Rianna Do Total [address] [address] 06/05/2024 Rianna Do [facility] [address] [place] [address] 06/11/2024 Rianna Do [facility] [address] [place] [address] 06/12/2024 Rianna Do [facility] [address] [place] [address] 06/27/2024 Rianna Do [facility] [address] [place] [address] 07/04/2024 Rianna Do [facility] [address] [place] [address] 07/10/2024 Rianna Do [facility] [address] [place] [address] 08/13/2024 Rianna Do [facility] [address] [place] [address] 06/10/2024 Rianna Do [facility] [address] [place] [address] 07/01/2024 Rianna Do [facility] [address] [place] [address] 07/02/2024 Rianna Do [facility] [address] [place] [address] 07/02/2024 Rianna Do [facility] [address] [place] [address] 07/03/2024 Rianna Do [facility] [address] [place] [address] 07/04/2024 Rianna Do [facility] [address] [place] [address] 07/05/2024 Rianna Do [facility] [address] [place] [address] 07/08/2024 Rianna Do [facility] [address] [place] [address] 07/17/2024 Rianna Do Total [facility] [address] [place] [address] 07/23/2024 Rianna Do Total [facility] [address] [place] [address] 07/25/2024 Rianna Do Total [facility] [address] [place] [address] 08/05/2024 Rianna Do Total [facility] [address] [place] [address] 08/05/2024 Rianna Do Total [facility] [address] [place] [address] 08/08/2024 Rianna Do Total [facility] [address] [place] [address] 08/22/2024 Rianna Do Total [facility] [address] [place] [address] 08/22/2024 Rianna Do Total [facility] [address] [place] [address] 09/04/2024 Rianna Do Total [facility] [address] [place] [address] 10/14/2024 Rianna Do Total [facility] [address] [place] [address] 10/17/2024 Riannaandrei Zaragozava Assessments Encounter Date Diagnosis (ICD Code) Assessment Notes Treatment Notes Treatment Clinical Notes Section Notes 05/15/2024 Encounter for gynecological examination (general) (routine) without abnormal findings (ICD-10 - Z01.419) PAP TEST WITH HPV TYPING WAS OBTAINED. 06/03/2024 Cervical high risk human papillomavirus (HPV) DNA test positive (ICD-10 - R87.810) DISCUSSED RESULTS OF RECENT PAP TEST AND ITS IMPLICATIONS. DISCUSSED NEED FOR COLPOSCOPY AND WHAT THIS PROCEDURE ENTAILS. LATER DISCUSSED FINDINGS ON COLPOSCOPY. WILL CALL HER WITH BIOPSY RESULTS. 06/27/2024 Moderate cervical dysplasia (ICD-10 - N87.1) DISCUSSED COLPOSCOPY AND CERVICAL BIOPSY RESULTS AND IMPLICATIONS OF RULA 2 AND RULA 1. DISCUSSED TX OPTIONS INCLUDING LEEP AND ITS BENEFITS AND RISKS. PAT ACCEPTS RISKS. (SEE PREVIOUS NOTES.) LEEP WAS PERFORMED WITHOUT DIFFICULTY AND SPECIMEN SENT TO PATHOLOGY. 07/05/2024 Encounter for insertion of intrauterine contraceptive device (ICD-10 - Z30.430) DISCUSSED BENEFITS AND RISKS OF IUD INSERTION AND IUD USE. SHE HAS NO CONTRAINDICATIONS AND ACCEPTS RISKS. 07/24/2024 Other specified abnormal uterine and vaginal bleeding (ICD-10 - N93.8) DISCUSSED FINDINGS AND REASSURED PAT LEEP SITE IS HEALING WELL. DISCUSSED ABNORMAL UTERINE BLEEDING DUE TO UNSTABLE ENDOMETRIUM. D/C AYGESTIN. SHIFT TO ESTRADIOL PATCH 0.0375 MG TWICE WEEKLY FOR 2 WEEKS. PELVIC ULTRASOUND CATHERINE. CBC WITH PLATELETS, PT, PTT WERE ORDERED. 08/09/2024 Excessive and frequent menstruation with regular cycle (ICD-10 - N92.0) PELVIC ULTRASOUND SHOWED THE IUD IN PLACE AND THE ENDOMETRIAL LINING IS 4MM THIN. DISCUSSED FINDINGS WITH PAT. THE THICK ENDOMETRIUM NOTED A FEW WEEKS AGO (11MM) HAS THINNED OUT. WILL KEEP HER ON ESTRADIOL PATCH 0.0375 MG TWICE WEEKLY FOR ANOTHER WEEK AND THEN WILL STOP THE MEDICATION. SHE WILL CALL ME IN A WEEK TO TELL ME IF HER BLEEDING HAS SUBSIDED. IF SHE BLEEDS HEAVILY AGAIN, WILL GIVE HER TRANEXAMIC ACID AND REFER HER BACK TO HEMATOLOGY FOR POSSIBLE PLATELET TRANSFUSION. 01/10/2025 Moderate cervical dysplasia (ICD-10 - N87.1) PAP TEST WITHHPV TYPING WAS OBTAINED. WARNED PAT THAT THIS CAN STILL BE ABNORMAL AND THAT WE USUALLY REPEAT PAP TESTS AFTER LEEP A YEAR AFTER TX. WILL REPEAT PAP TEST IN MAY 2025. 01/10/2025 Encounter for routine checking of intrauterine contraceptive device (ICD-10 - Z30.431) PAT WAS REASSURED THAT IUD IS IN PLACE. 07/24/2024 Pelvic Pain (ICD-10 - R10.2) DISCUSSED PROBABLE CAUSE OF CRAMPING, BLOOD IN THE ENDOMETRIAL CAVITY WITH IUD SO THE UTERUS IS TRYING TO EXPEL ALL THESE. RECOMMENDED IBUPROFEN 800 MG Q6 TO 8 HOURS NEEDED WITH FOOD. 06/27/2024 Encounter for removal of intrauterine contraceptive device (ICD-10 - Z30.432) LEEP COULD NOT BE DONE WELL WITHOUT REMOVING THE IUD DUE TO THE IUD STRING STICKING OUT OF THE CERVICAL OS. WE DECIDED TO REMOVE THE IUD AND REPLACE IN 2 TO 3 WEEKS. 07/05/2024 Excessive and frequent menstruation with regular cycle (ICD-10 - N92.0) DISCUSSED MENORRHAGIA AND HOW THIS IS CONTROLLED BY MIRENA IUD. WILL INSERT IUD NOW BUT WILL ADD AYGESTIN TAPER TO CONTROL BLEEDING. DETAILED INSTRUCTIONS WERE GIVEN. MAY DISCONTINUE AYGESTIN EARLY NEXT WEEK. 06/03/2024 Atypical squamous cells of undetermined significance on cytologic smear of cervix (ASC-US) (ICD-10 - R87.610) 05/15/2024 Encounter for screening mammogram for malignant neoplasm of breast (ICD-10 - Z12.31) REGULAR MAMMOGRAMS AND SBE'S WERE RECOMMENDED. 05/15/2024 Other microscopic hematuria (ICD-10 - R31.29) OFFICIAL UA AND URINE C/S. 06/27/2024 Excessive and frequent menstruation with regular cycle (ICD-10 - N92.0) PAT HAS VON WILLEBRAND'S DISEASE AND IF SHE BLEEDS HEAVILY PRIOR TO OUR BEING ABLE TO REPLACE THE IUD, SHE WILL CALL DR PLASENCIA. 07/24/2024 Personal history of cervical dysplasia (ICD-10 - Z87.410) DISCUSSED PREVIOUS LEEP AND REASSURED THE PAT THAT LEEP SITE IS HEALING WELL. 07/05/2024 Postprocedural hemorrhage of a genitourinary system organ or structure following a genitourinary system procedure (ICD-10 - N99.820) DISCUSSED EXCESSIBE BLEEDING IN THE PAST FEW DAYS DUE TO VON WILLEBRAND'S DISEASE. CONTINUE FOLLOW UP WITH DR PLASENCIA. 07/24/2024 Encounter for routine checking of intrauterine contraceptive device (ICD-10 - Z30.431) PELVIC ULTRASOUND TO MAKE SURE IUD IS IN PLACE. CHECK ENDOMETRIAL LINING. 07/05/2024 Personal history of cervical dysplasia (ICD-10 - Z87.410) DISCUSSED RULA 2. WAITING FOR SURGICAL PATHOLOGY REPORT FROM LEEP. 05/15/2024 Encounter for routine checking of intrauterine contraceptive device (ICD-10 - Z30.431) PAT WAS REASSURED THAT IUD IS IN PLACE BUT WILL NEED REPLACEMENT. MISO/MOTRIN 07/24/2024 Von Willebrand disease, unspecified (ICD-10 - D68.00) CALLED DR ERINN LOUIS'S NURSE WHO IS TAKING CARE OF JOSSELINE AND LEFT MESSAGE TO CALL ME BACK. WILL UPDATE THEM ON JOSSELINE'S ISSUES. Plan Of Treatment Pending Test Test Name Order Date MM Digital Mammo Screening 05/15/2024 PELVIC ULTRASOUND W/TRANSVAGINAL 025 CBC, Platelet, No Differential-[id number] Next Appt Details Provider Name:Rianna mosley, 05/16/2025 02:00:00 PM, [address] [facility], [address], [place], [address], Insurance Providers Payer Name Payer Address Payer Phone Subscriber Number Group Number Insured Name Patient Relationship to Insured Coverage Start Date Coverage End Date [facility] [address] [place] [address] [phone] [id number] JOSSELINE LOPEZ Self - patient is the insured Medical (General) History Medical History History ICD Code Gastro-esophageal reflux disease without esophagitis K21.9 Atypical squamous cells of u ndetermined significance on cytologic smear of cervix (ASC-US) R87.610 Cervical high risk human papillomavirus (HPV) DNA test positive R87.810 Moderate cervical dysplasia N87.1 Excessive and frequent menstruation with regular cycle N92.0 Other specified abnormal uterine and vag inal bleeding N93.8 Von Willebrand disease, unspecified D68. 00 Postprocedural hemorrhage of a genitourinary system organ or structure following a genitourinary system procedure N99.820 Surgical History Surgery Date(Month/Year) Colonoscopy Age 19 x 1 03/2009 Gastric Sleeve 06/2019 MOHS Surgery x 2 Hospitalization History Reason Date(Month/Year) See Surgical Hx
--- OUTSIDE RECORDS SUMMARY | 2025-04-28 14:49 | XMS_ITS | Patient Health Record ---
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 No Problems Problem Type SNOMED Code ICD Code Onset Dates Problem Status W/U Status Risk Notes Problem Plantar fascial fibromatosis (91992466) Plantar fascial fibromatosis (M72.2) Active confirmed Plan Of Treatment Pending Test Test Name Order Date ,[id number] TENDON SHEATH/LIGAMENT 0 01/14/2016 Insurance Providers Payer Name Payer Address Payer Phone Subscriber Number Group Number Insured Name Patient Relationship to Insured Coverage Start Date Coverage End Date [facility] [address] [place] [address] [phone] [id number] Ismaeljacki [place] Laure Self - patient is the insured Medical (General) History Medical History History ICD Code Chicken pox Von Willibrand's clotting disease - 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
--- OUTSIDE RECORDS SUMMARY | 2025-04-28 14:50 | XMS_ITS | Clinical Summary ---
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 at bedtime 05/03/2024 Active omeprazole 20 mg tablet,disinteg rat, delay rel Take by mouth. Active tranexamic acid (LYSTEDA) 650 mg tablet tablet TAKE 2 TABLETS BY MOUTH THREE TIMES DAILY DURING MENSES FOR 5 DAYS 08/13/2024 Active phentermine 30 mg capsuleIndicati ons:Obesity, Class II, BMI 35-39.9 Take 1 capsule (30 mg total) by mouth 1 (one) time each day before breakfast. Max Daily Amount: 30 mg 30 each 10/17/2024 Active phentermine-top iramate (Qsymia) 3.75-23 mg capsule, ER multiphase 24 hr Take 1 capsule by mouth 1 (one) time each day for 14 days. Max Daily Amount: 1 capsule 14 capsule 11/26/2024 Active phentermine-top iramate 7.5-46 mg capsule, ER multiphase 24 hr TAKE 1 CAPSULE BY MOUTH DAILY. MAX DAILY AMOUNT: 1 CAPSULE 30 capsule 03/19/2025 Active Surgical History Surgery Date Site/Laterality Comments OTHER SURGICAL HISTORY 2008 PROCEDURE: HISTORICAL CERCLAGE SURGERY OTHER SURGICAL HISTORY PROCEDURE: HISTORICAL NASOLACRIMAL DUCT REPAIR SECTION 2008 PROCEDURE: HISTORICAL DELIVERY OTHER SURGICAL HISTORY 07/14/2000 PROCEDURE: [facility] FISSURECTOMY INCL SPHINCTEROTOMY WHEN PERFORMED; COMMENT: Lateral internal sphincterotomy and excision of perianal skin tag. OTHER SURGICAL HISTORY PROCEDURE: [facility] GASTRIC RSTCV W/O BYP VERTICAL-BANDED GASTROPLY; COMMENT: Performed in June 2019-gastric sleeve CHOLECYSTECTOMY 10/09/2020 N/A PROCEDURE: [facility] LAPAROSCOPY SURG CHOLECYSTECTOMY; COMMENT: robotic assisted lap phillip - Dr. Nereida Cain [facility] Medical History Medical History Date Comments Class 3 severe obesity due t o excess calories without serious comorbidity with body mass index (BMI) of 40.0 to 44.9 in adult (CMS/HCC V24, CMS/[facility] V28) 12/11/2018 DX:Class 3 severe obesity du e to excess calories without serious comorbidity with body mass index (BMI) of 40.0 to 44.9 in adult (HCC) Von Willebrand disease (CMS/ HCC V24, CMS/[facility] V28) 01/02/2019 DX:Von Willebrand disease (H CC) Migraines 01/02/2019 DX:Migraines IBS (irritable bowel syndrome) 01/02/2019 D X:IBS (irritable bowel syndrome) Class 2 obesity due to exces s calories without serious comorbidity with body mass index (BMI) of 37.0 to 37.9 in adult 12/11/2018 DX:Class 2 obesity due to ex cess calories without serious comorbidity with body mass index (BMI) of 37.0 to 37.9 in adult Fatty liver DX:Fatty liver Elevated liver enzymes DX:Elevat ed liver enzymes Gallstones DX:Gallstones Status post gastric surgery DX:S tatus post gastric surgery Family History Medical History Relation Name Comments Diabetes Father Hypertension Father Hypertension Mother Thyroid disease Mother von Willebra nds disease Relation Name Status Comments Father Alive Mother Alive Social History Tobacco Use Types Packs/Day Years Used Date Smoking Tobacco: Never Smokeless Tobacco: Never Alcohol Use Standard Drinks/Week Comments Yes 0 (1 standard drink = 0.6 oz pur e alcohol) Comments Unknown Sex and Gender Information Value Date Recorded Sex Assigned at Not on file Legal Sex Female 3:26 PM EST Gender Identity Not on file Sexual Orientation Not on file Last Filed Vital Signs Vital Sign Reading Time Taken Comments Blood Pressure 133/94 08/27/2024 10:55 AM EDT Pulse 98 08/27/2024 10:55 AM EDT Temperature - - Respiratory Rate - - Oxygen Saturation - - Inhaled Oxygen Concentration - - Weight 103 kg (227 lb) 08/27/2024 10:55 AM EDT Height 167.6 cm (5' 6 ) 08/27/2024 10:55 AM EDT Body Mass Index 36.64 08/27/2024 10:55 AM EDT Plan of Treatment Upcoming Encounters Date Type Department Care Team (Late st Contact Info) Description 05/22/2025 10:30 AM EST Office Visit Bariatric Surgery - [address] [place] [address] [place], DEANDRA [address] [place] [phone] Health Maintenance Due Date Last Done Comments Breast Cancer Screening 1980 Drug Screen 1980 Non-Opioid Controlled Substance Agreement 1980 DTaP,Tdap,and Td Vaccines (1 - Tdap) 09/19/1999 Hepatitis A Vaccines (1 of 2 - Risk 2-dose series) 09/19/1999 Hepatitis B Vaccines (1 of 3 - 19+ 3-dose series) 09/19/1999 Cervical Cancer Screening: Pap Smear 2001 HPV Vaccines (1 - 3-dose SCDM series) 09/19/2007 Cholesterol Screening (Lipid Panel) 04/16/2022 HIV Screening 04/16/2022 Hepatitis C Screening 04/16/2022 Social Influencers of Health Screening 04/16/2022 Depression Screening 05/08/2024 COVID-19 Vaccine ( season) 2025 04/06/2021, 06/11/2020, 05/14/2020 Influenza Vaccine (#1) 2025 4, 03/13/2023, 03/19/2022, Additional history exists RSV Immunization Adult Patients (1 - 1-dose 75+ series) 09/19/2055 HIB Vaccines Aged Out No longer eligi ble based on patient's age to complete this topic IPV Vaccines Aged Out No longer eligi ble based on patient's age to complete this topic MMR Vaccines Aged Out No longer eligi ble based on patient's age to complete this topic Meningococcal ACWY Vaccine Aged Out N o longer eligible based on patient's age to complete this topic Meningococcal B Vaccine Aged Out No l onger eligible based on patient's age to complete this topic Pneumococcal Vaccine: Pediatrics (0 to 5 Years) and At-Risk Patients (6 to 49 Years) Aged Out No longer eligible based on patient's age to complete this topic RSV Immunization Patients Under 20 months Aged Out No longer eligible based on patient's age to complete this topic Varicella Vaccines Aged Out No longer eligible based on patient's age to complete this topic Insurance [facility] [place] [id number] Care Teams Hunting And Fishing Guide Relationship Specialty Start Date End Date Jaciel Bone MD [address] [place] [address] PCP - General Internal Medicine 11/30/17
[2025-04-28 14:57] VITALS: BP 140/90; PULSE 73; RESP 18; TEMP 36.5; O2SAT 97
== END 2025-04-28 14:57 | disposition home or self-care (01) ==
PROVIDERS: Physician Assistant; Emergency Provider Emergency Medicine; PCP Internal Medicine
DX: R07.89 Other chest pain (principal); R05.9 Cough, unspecified; R06.02 Shortness of breath; R00.0 Tachycardia, unspecified; Z03.818 Encounter for observation for suspected exposure to other biological agents ruled out; Z79.899 Other long term (current) drug therapy
CPT/HCPCS: 36415; 71046; 80053; 81001; 81003; 83880; 84484; 85025; 85379; 85610; 85730; 87637; 93005; 96372; 99284; J1885

== ENCOUNTER → 2025-04-28 10:50 | Outpatient (BNV) | payer OTHER, SELFPAY | PROVIDERS: Emergency Provider Emergency Medicine; PCP Internal Medicine; Visit Provider Internal Medicine Cardiovascular Disease | DX: R00.0 Tachycardia, unspecified (principal) | CPT/HCPCS: 93010 ==

== ENCOUNTER → 2025-04-28 11:15 | Outpatient (BNV) | payer OTHER, SELFPAY | PROVIDERS: Emergency Provider Emergency Medicine; PCP Internal Medicine; Visit Provider Radiology Diagnostic Radiology | DX: R07.9 Chest pain, unspecified (principal) | CPT/HCPCS: 71046 ==